=== PATIENT | male | born 1985 | race African-American/Black ===

== ENCOUNTER → 2016-10-10 | Emergency (ER) | payer BC ==
[~2016-10-10] VITALS: Ht 180.3 cm; Wt 103.0 kg
[~2016-10-10] MED LIST: AMINOPHYLLIN200 MG PO; PYRIDIUM200 M1 PO
[2016-10-10 01:19] LABS: BILIRUBIN NEGATIVE (NEGATIVE); BLOOD NEGATIVE (NEGATIVE); CLARITY CLEAR (CLEAR); COLOR YELLOW (YELLOW); GLUCOSE NEGATIVE (NEGATIVE); KETONE NEGATIVE (NEGATIVE); LEUKO ESTERASE NEGATIVE (NEGATIVE); NITRITE NEGATIVE (NEGATIVE); PROTEIN NEGATIVE (NEGATIVE); SPECIFIC GRAVITY 1.015 (1.005-1.030)
[2016-10-10 01:29] LABS: BACTERIA 1+; EPITHELIAL CELLS 0-2; URINE REFLEX COMMENT NO (NO); WBC 0-2 wbc/hpf (0-5)
== END ==
LOC: ED 00:49
PROVIDERS: Emergency Medicine Emergency Medical Services
DX: N39.0 Urinary tract infection, site not specified (principal)

== ENCOUNTER 2016-10-17 19:12 | Emergency (ER) | payer BC ==
[~2016-10-17] VITALS: Ht 180.3 cm; Wt 103.0 kg
[2016-10-17 20:28] LABS: BILIRUBIN NEGATIVE (NEGATIVE); BLOOD NEGATIVE (NEGATIVE); CLARITY CLEAR (CLEAR); COLOR YELLOW (YELLOW); GLUCOSE NEGATIVE (NEGATIVE); KETONE NEGATIVE (NEGATIVE); LEUKO ESTERASE NEGATIVE (NEGATIVE); NITRITE NEGATIVE (NEGATIVE); PH 5.5 (5.0-9.0); PROTEIN NEGATIVE (NEGATIVE); UROBILINOGEN 0.2 E.U./dl (0.2-1.0)
[2016-10-17 20:35] LABS: BACTERIA TRACE
[2016-10-17 20:36] LABS: URINE REFLEX COMMENT NO (NO); WBC 0-2 wbc/hpf (0-5)
== END 2016-10-17 20:55 | disposition home or self-care (01) ==
LOC: ED 19:12
PROVIDERS: Nurse Practitioner Family
DX: Z00.8 Encounter for other general examination (principal)

== ENCOUNTER 2018-04-13 03:31 | Emergency (ER) | payer BC ==
[~2018-04-13] VITALS: Ht 180.3 cm; Wt 107.5 kg
[2018-04-13 04:00] LABS: BILIRUBIN NEGATIVE (NEGATIVE); BLOOD NEGATIVE (NEGATIVE); CLARITY SL CLOUDY (CLEAR); COLOR YELLOW (YELLOW); GLUCOSE NEGATIVE (NEGATIVE); KETONE TRACE (NEGATIVE); LEUKO ESTERASE NEGATIVE (NEGATIVE); NITRITE NEGATIVE (NEGATIVE)
[2018-04-13 04:08] LABS: BACTERIA 1+; EPITHELIAL CELLS 0-2; MUCOUS 1+; WBC 0-2 wbc/hpf (0-5)
[2018-04-16 19:10] LABS: GONOCOCCUS BY NAA Negative (Negative)
== END 2018-04-13 04:21 | disposition home or self-care (01) ==
LOC: ED 03:31
PROVIDERS: Emergency Medicine
DX: Z11.3 Encounter for screening for infections with a predominantly sexual mode of transmission (principal)